=== PATIENT | male | born 1975 | race Caucasian/White ===

== ENCOUNTER 2025-02-24 01:47 | Inpatient (IN) | payer MEDICAID ==
[~2025-02-24] VITALS: Ht 177.8 cm; Wt 68.0 kg
[2025-02-24] MEDS: normal saline 1000ml 1,000 ML IV ONE ×2 (02:20→03:14)
--- NOTE | 2025-02-24 02:20 | Physician Documentation ---
History of Present Illness ~ Chief Complaint: ETOH Withdrawl Stated Complaint: ETOH/WITHDRAWAL Time Seen by : 02:09 Mode of Arrival: POV HPI Patient presents to the emergency room with chief complaint of alcohol withdrawal. He was seen at [facility] earlier today and received IV withdrawal medications per patient. This helped however he continued to have symptoms that has told that going down to [place] he will be a better place for him. Last drink yesterday. Endorses significant alcohol consumption over the past two years since he his . Complaining of tremors Tetanus within 5 years?: Yes Medication Reconciliation Allergies: Coded Allergies: No Known Allergies (Unverified , 02/24/25) Review of Systems ROS All review of systems negative except as per HPI Physical Exam Vital Signs: Temperature: 96.8, Source: Temporal, Heart Rate: 143, Respiratory Rate: 20, BP: 143/99, Pulse Oximetry: 98, Weight: 68.000 Physical Exam General: Patient is awake, alert, oriented x4, tremulous Head: Normocephalic and atraumatic. Eyes: Conjunctival normal. EOMI. PERRL. ENT: Mucous membranes moist. Neck: Supple, trachea is midline. Chest: Clear to auscultation bilaterally without rales, rhonchi, or wheezes. There is no accessory muscle use or retractions. Cardiac: Tachycardic and regular without murmurs, gallops, or rubs. Abd: Soft, nondistended, nontender, with normoactive bowel sounds. No guarding, rebound, or rigidity. Extremities: Normal strength. Normal range of motion. No deformities or edema. Back: No midline spinal or CVA tenderness. Skin: Warm and dry with no significant rash appreciated. Neuro: Cranial nerves II-XII grossly intact. No focal neuro deficits. Progress Results/Orders Results/Orders Orders - MISHA MCKEON MD Urinalysis (02/24/25 02:19) Drug Screen, Urine (02/24/25 02:19) Close Observation Level (02/24/25 02:19) Page Hospitalist (02/24/25 03:00) Fill Out Med Reconciliation (02/24/25 03:00) Completed Orders - MISHA MCKEON MD Normal Saline 1000ml (Sodium Chloride 10 (02/24/25 02:20) Cbc/Diff (02/24/25 02:19) Ethanol (02/24/25 02:19) TSH (02/24/25 02:19) Thiamine Inj. (Thiamine Inj.) (02/24/25 02:20) Electrocardiogram (02/24/25 02:20) Midazolam 5 Mg/Ml 2ml Inj (Versed 5 Mg/M (02/24/25 02:40) Normal Saline 1000ml (Sodium Chloride 10 (02/24/25 03:05) CMP (02/24/25 02:08) Medications Received in ER Medications (Trade) Dose Ordered Sig/Paty Route PRN Reason Start Time Stop Time Status Last Admin Dose Admin Sodium Chloride 1,000 ml @ 1,000 mls/hr ONCE ONCE IV 02/24/25 02:20 02/24/25 03:19 DC 02/24/25 02:20 1,000 MLS/HR (thiamine inj.) 100 mg ONCE ONCE IV 02/24/25 02:20 02/24/25 02:21 DC 02/24/25 02:24 100 MG (Versed 5 MG/ML 2ML inj) 5 mg ONCE ONCE IV 02/24/25 02:40 02/24/25 02:41 DC 02/24/25 02:56 5 MG Sodium Chloride 1,000 ml @ 1,000 mls/hr ONCE ONCE IV 02/24/25 03:05 02/24/25 04:04 DC 02/24/25 03:14 1,000 MLS/HR Sodium Chloride 1,000 ml @ 100 mls/hr Q10H IV 02/24/25 03:50 02/24/25 03:57 100 MLS/HR Vital Signs 02/24/25 02/24/25 02/24/25 01:53 02:09 03:02 Temp 96.8 Pulse 143 120 Resp 22 20 18 B/P (MAP) 143/99 144/98 (113) Pulse Ox 98 97 Laboratory Tests Test 02/24/25 02:08 White Blood Count 7.3 Red Blood Count 4.63 L Hemoglobin 15.2 Hematocrit 44.4 Mean Corpuscular Volume 95.9 Mean Corpuscular Hemoglobin 32.8 H Mean Corpuscular Hemoglobin Concent 34.2 Red Cell Distribution Width 14.8 H Platelet Count 165 Mean Platelet Volume 7.2 L Neutrophils (%) (Auto) 61.9 Lymphocytes (%) (Auto) 26.4 Monocytes (%) (Auto) 10.4 Eosinophils (%) (Auto) 0.8 Basophils (%) (Auto) 0.5 Neutrophils # (Auto) 4.5 Lymphocytes # (Auto) 1.9 Monocytes # (Auto) 0.8 Eosinophils # (Auto) 0.1 Basophils # (Auto) 0.0 CBC Comment Sodium Level 136 Potassium Level 3.7 Chloride Level 101 Carbon Dioxide Level 26.4 Anion Gap 9 Blood Urea Nitrogen 8 Creatinine 1.06 Estimated GFR/1.73 m2 74 BUN/Creatinine Ratio 7.5 L Glucose Level 211 H Calcium Level 8.8 Total Bilirubin 0.5 Aspartate Amino Transf (AST/SGOT) 90 H Alanine Aminotransferase (ALT/SGPT) 51 Alkaline Phosphatase 106 Total Protein 7.4 Albumin 3.7 Globulin 3.7 Albumin/Globulin Ratio 1.0 L Thyroid Stimulating Hormone (TSH) 2.04 Chemistry Comments Ethyl Alcohol Level < 10 EKG/XRAY/CT/US/VASC/MRI EKG : Additional Comment EKG interpreted by myself shows time of 0230, rate 115, sinus tachycardia, normal axis, no ST changes Medical Decision Making Findings Patient is experiencing significant withdrawal symptoms and he had not believe he is safe for discharge. IV fluids initiated along with thiamine and benzodiazepines. Departure Admitted to Inpatient Unit: yes, to hospitalist Impression: Primary Impression: Alcohol withdrawal syndrome Condition: Guarded Referrals: NO PRIMARY CARE PROVIDER (PCP) Signature Scribe Signature: No scribe Attestation: The note accurately reflects work and decisions made by me.Misha Mckeon MD 02/24/25 03:02 MISHA MCKEON MD Feb 24, 2025 02:20
[2025-02-24] MEDS: thiamine 100mg/ml 2ml inj. IV ONE (02:24)
[2025-02-24 02:29] LABS: BASOPHILS % (AUTO) 0.5 % (0-1); EOSINOPHILS # (AUTO) 0.1 X10'3 (0-0.9); EOSINOPHILS % (AUTO) 0.8 % (0-6); HEMATOCRIT 44.4 % (42.0-52.0); HEMOGLOBIN 15.2 g/dl (14.0-17.9); LYMPHOCYTES # (AUTO) 1.9 X10'3 (1.1-4.8); LYMPHOCYTES % (AUTO) 26.4 % (21-51); MEAN CORPUSCULAR HEMOGLOBIN 32.8 PG (27.0-31.0); MEAN CORPUSCULAR HGB CONC 34.2 g/dL (33.0-36.5); MEAN CORPUSCULAR VOLUME 95.9 FL (78-98); MEAN PLATELET VOLUME 7.2 FL (7.4-10.4); MONOCYTES # (AUTO) 0.8 X10'3 (0-0.9); MONOCYTES % (AUTO) 10.4 % (2-12); NEUTROPHILS # (AUTO) 4.5 X10'3 (1.8-7.7); NEUTROPHILS % (AUTO) 61.9 % (42-75); PLATELET COUNT 165 X10'3 (140-440); RED BLOOD COUNT 4.63 X10'6 (4.70-6.10); RED CELL DISTRIBUTION WIDTH 14.8 % (11.5-14.5); WHITE BLOOD COUNT 7.3 X10'3 (4.5-11.0)
--- NOTE | 2025-02-24 02:32 | ELECTROCARDIOGRAPH REPORT ---
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 Mode Ron Measurements Intervals [place] Rate: 115 P: 44 [place]: 144 QRS: 34 QRSD: 79 T: 33 QT: 315 QTc: 436 Interpretive Statements Sinus tachycardia Electronically Signed On 02-25-2025 18:24:[address] Mode Ron Please click the below link to view image of tracing.
[2025-02-24 02:47] LABS: ALBUMIN 3.7 G/DL (3.4-5.0); ANION GAP 9 (8-16); BLOOD UREA NITROGEN 8 MG/DL (7-18); BUN/CREATININE RATIO 7.5 (10.0-20.0); CALCIUM 8.8 MG/DL (8.5-10.1); CHLORIDE 101 MMOL/L (99-107); CREATININE 1.06 MG/DL (0.60-1.10); ETHANOL < 10 MG/DL (<10); GLUCOSE 211 MG/DL (70-104); POTASSIUM 3.7 MMOL/L (3.5-5.1); SODIUM 136 MMOL/L (135-145); THYROID STIMULATING HORMONE 2.04 ulU/ml (0.34-4.50); TOTAL CARBON DIOXIDE 26.4 MMOL/L (24-32); eCRCL 81 ML/MIN; eGFR 74 ML/MIN
[2025-02-24] MEDS: MIDAZolam 5mg/ml 2ml vial IV ONE (02:56)
[2025-02-24] MEDS ORDERED: magnesium sulf-water 2g/50mL 50 ML IV PRN (03:50)
[2025-02-24] MEDS ORDERED: magnesium Cl slow-release 64mg tablet PO PRN (03:50)
[2025-02-24] MEDS ORDERED: potassium Cl 40MEQ/1/2NS 520ml 520 ML IV PRN (03:50)
[2025-02-24] MEDS ORDERED: magnesium hydroxide 30ml (MOM) UD suspension PO PRN (03:50)
[2025-02-24] MEDS ORDERED: magnesium sulf-water 4G/100mL 100 ML IV PRN (03:50)
[2025-02-24] MEDS ORDERED: potassium Cl 20 mEq SR tablet PO PRN ×2 (03:50)
[2025-02-24 03:56] LABS: ALANINE AMINOTRANSFERASE 51 U/L (12-78); ALKALINE PHOSPHATASE 106 IU/L (46-116); ASPARTATE AMINO TRANSFERASE 90 U/L (10-37); BILIRUBIN,TOTAL 0.5 MG/DL (0.1-1.0); TOTAL PROTEIN 7.4 G/DL (6.4-8.2)
[2025-02-24] MEDS: normal saline 1000ml 1,000 ML IV SCH ×2 (03:57→04:35)
[2025-02-24] MEDS ORDERED: haloperidol 5mg tablet PO PRN (04:20)
[2025-02-24] MEDS ORDERED: LORazepam 2 mg/ml vial IV PRN (04:20)
[2025-02-24] MEDS ORDERED: haloperidol lactate 5mg/ml inj IM PRN ×2 (04:20)
[2025-02-24] MEDS ORDERED: dextrose 50%-water 50ml dispensing syringe IV PRN (04:20)
--- NOTE | 2025-02-24 04:28 | HISTORY AND PHYSICAL-Residence ---
History & Physical Providers to CC Resident Creating Document: JAQUELINE ADAMS RES ~ History of Present Illness Reason for Admit\Complaint: Alcohol withdrawal History of Present Illness 49 years old male presented to the ED with alcohol withdrawal symptoms. Patient start drinking heavily during last 18 months and had couple of months sober in between, however patient start drinking again about three months ago. He has been drinking on and off recently. He reported he during for 4-5 drinks daily including beer and hard liquor. He reported multiple nausea vomiting last week due to binge drinking. Last drinking was yesterday which was a whiskey. He reported severe tremor, and agitation, intermittent shortness of breath, denied hallucination Allergies: Coded Allergies: No Known Allergies (Unverified , 02/24/25) Past Medical History Past Medical History Borderline hypertension Past Surgical History Surgical History Comment Noncontributory Family History Family History: FH: colon cancer (Mother,) Past Social History Smoking: Non-Smoker Alcohol Use: Heavy Drug Use: None ROS ROS The history of present illness included a review of system, which yielded relevant positives and negatives Exam Vitals: Vital Signs Date Time Temp Pulse Resp B/P (MAP) Pulse Ox O2 Delivery O2 Flow Rate FiO2 02/24/25 04:19 118 15 120/76 (91) 98 02/24/25 01:53 96.8 General: General: Awake and Alert, mild agitation HEENT: Conjunctiva pink, Sclera clear, Mucus Membranes moist. Neck: Supple without masses and tenderness. Resp: Lungs clear to auscultation bilaterally. Heart: Regular Rate and rhythm, normal S1 and S2 without murmur, rub or gallop. Abdomen: Soft and non tender no organomegaly Extremities: Bilateral upper extremity tremor, No cyanosis,clubbing or edema. Skin: Warm and Dry. 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 Patient seen through remote audiovisual assessment through HIPAA compliant setup. All labs, flowsheets, and images reviewed Cumulative nonprocedural care time spent in directed patient care = 30 min Monica Rodrigez MD Date of Service: Feb 24, 2025 Billing Provider: MONICA RODRIGEZ MD Common Visit Codes: [id number] INP/OBS CARE (MOD) JAQUELINE ADAMS, RES Feb 24, 2025 04:28 MONICA RODRIGEZ MD Feb 24, 2025 05:57
[2025-02-24] MEDS: LORazepam 2 mg/ml vial IV PRN ×2 (04:53→06:04)
[2025-02-24 04:57] LABS: AMYLASE 62 U/L (25-115); LIPASE 115 U/L (16-77)
[2025-02-24 05:00] LABS: APTT 27 SECONDS (22-32)
[2025-02-24] MEDS: pantoprazole 40 MG vial IV SCH (05:06)
[2025-02-24 05:34] LABS: URINE AMPHETAMINE SCREEN NEGATIVE (Neg); URINE BARBITUATE SCREEN NEGATIVE (Neg); URINE BENZODIAZEPINES SCREEN POSITIVE (Neg); URINE CANNABINOID SCREEN POSITIVE (Neg); URINE COCAINE SCREEN NEGATIVE (Neg); URINE METHADONE SCREEN NEGATIVE (Neg); URINE OPIATE SCREEN NEGATIVE (Neg); URINE PHENCYCLIDINE SCREEN NEGATIVE (Neg)
[2025-02-24] MEDS: thiamine 100mg/ml 2ml inj. IV SCH ×2 (05:42→09:16)
[2025-02-24 05:45] LABS: BILIRUBIN,URINE NEGATIVE (Neg); CLARITY,URINE CLEAR (Clear); COLOR,URINE YELLOW (Yellow); GLUCOSE, URINE NEGATIVE (Neg); KETONES,URINE NEGATIVE (Neg); LEUKOCYTE ESTERASE ,URINE NEGATIVE (Neg); NITRITES, URINE NEGATIVE (Neg); OCCULT BLOOD,URINE NEGATIVE (Neg); PROTEIN,URINE NEGATIVE (Neg); UROBILINOGEN,URINE 0.2 E.U/dL (0.2-1.0)
[2025-02-24 05:52] LABS: UA COLLECTION TYPE VOIDED
[2025-02-24 05:54] VITALS: BP 126/83; PULSE 106; RESP 19; TEMP 98; O2SAT 98
[2025-02-24 06:56] LABS: MAGNESIUM 2.1 MG/DL (1.5-2.4); POTASSIUM 3.8 MMOL/L (3.5-5.1)
[2025-02-24 08:00] VITALS: RESP 18; O2SAT 96
[2025-02-24] MEDS: docusate sod 100mg capsule PO SCH (08:00)
[2025-02-24] MEDS: K and/or MAG REPLACEMENT MC SCH (08:00)
[2025-02-24] MEDS: folic acid 1mg/0.2ml inj IV SCH (09:15)
[2025-02-24] MEDS: heparin, porcine 5000 units/ml vial SQ SCH (09:16)
[2025-02-24] MEDS: multivitamins, therapeutics tablet PO SCH (09:17)
[2025-02-24 10:00] VITALS: BP 141/86; PULSE 90; RESP 18; TEMP 98.4; O2SAT 96
[2025-02-24 13:44] VITALS: RESP 18; O2SAT 96
[2025-02-24] MEDS: ondansetron/PF 4mg/2ml inj IV PRN (15:24)
[2025-02-24] MEDS: acetaminophen 325mg tablet PO PRN (15:26)
[2025-02-24] MEDS ORDERED: acetaminophen 325mg tablet PO PRN (16:40)
[2025-02-24] MEDS ORDERED: iohexol 300mg/ml 100ml inj. ONE (16:57)
--- NOTE | 2025-02-24 17:45 | RADIOLOGY REPORT ---
EXAM: CT Abdomen and Pelvis With Intravenous Contrast CLINICAL INDICATION: n/v/d, elevated lipase TECHNIQUE: Axial computed tomography images of the abdomen and pelvis with intravenous contrast. Th is CT exam was performed using one or more of the following dose reduction techniques: automated exp osure control, adjustment of the mA and/or kV according to patient size, and/or use of iterative alberto nstruction technique. CONTRAST: COMPARISON: No relevant prior studies available. FINDINGS: LUNG BASES: Unremarkable. No mass. No consolidation. ABDOMEN: LIVER: Hepatomegaly with fatty infiltration. GALLBLADDER AND BILE DUCTS: Unremarkable. No calcified stones. No ductal dilation. PANCREAS: Unremarkable. No ductal dilation. No CT evidence of acute pancreatitis. SPLEEN: Unremarkable. No splenomegaly. ADRENALS: Unremarkable. No mass. KIDNEYS AND URETERS: Unremarkable. No solid mass. No hydronephrosis. STOMACH AND BOWEL: Fecal retention in the colon consistent with constipation. Colonic diverticulos is without acute diverticulitis. No obstruction. PELVIS: APPENDIX: No findings to suggest acute appendicitis. BLADDER: Unremarkable. No mass. REPRODUCTIVE: Unremarkable as visualized. ABDOMEN and PELVIS: INTRAPERITONEAL SPACE: Unremarkable. No free air. No significant fluid collection. BONES/JOINTS: No acute fracture. No dislocation. SOFT TISSUES: Umbilical hernia containing fat. Inguinal hernias, bilaterally. VASCULATURE: Unremarkable. No abdominal aortic aneurysm. LYMPH NODES: Unremarkable. No enlarged lymph nodes. OTHER FINDINGS: Comparison None. . IMPRESSION: 1. No CT evidence of acute pancreatitis. 2. Hepatomegaly with fatty infiltration. 3. Fecal retention in the colon consistent with constipation. 4. Umbilical hernia containing fat. 5. Inguinal hernias, bilaterally. 6. Colonic diverticulosis without acute diverticulitis. HS:Y
[2025-02-24 18:00] VITALS: BP 140/93; PULSE 101; RESP 18; TEMP 97.6; O2SAT 96
[2025-02-24 22:00] VITALS: BP 103/67; PULSE 62; RESP 16; TEMP 98.2; O2SAT 96
[2025-02-25 06:00] VITALS: BP 130/77; PULSE 85; RESP 16; TEMP 98.4; O2SAT 98
[2025-02-25 06:14] LABS: BASOPHILS % (AUTO) 0.6 % (0-1); EOSINOPHILS # (AUTO) 0.2 X10'3 (0-0.9); EOSINOPHILS % (AUTO) 2.9 % (0-6); HEMATOCRIT 42.2 % (42.0-52.0); HEMOGLOBIN 14.5 g/dl (14.0-17.9); LYMPHOCYTES # (AUTO) 1.4 X10'3 (1.1-4.8); LYMPHOCYTES % (AUTO) 23.9 % (21-51); MEAN CORPUSCULAR HEMOGLOBIN 32.9 PG (27.0-31.0); MEAN CORPUSCULAR HGB CONC 34.3 g/dL (33.0-36.5); MEAN CORPUSCULAR VOLUME 95.9 FL (78-98); MEAN PLATELET VOLUME 7.8 FL (7.4-10.4); MONOCYTES # (AUTO) 0.5 X10'3 (0-0.9); MONOCYTES % (AUTO) 7.9 % (2-12); NEUTROPHILS # (AUTO) 3.8 X10'3 (1.8-7.7); NEUTROPHILS % (AUTO) 64.7 % (42-75); PLATELET COUNT 120 X10'3 (140-440); RED CELL DISTRIBUTION WIDTH 14.3 % (11.5-14.5); WHITE BLOOD COUNT 5.9 X10'3 (4.5-11.0)
[2025-02-25 06:21] LABS: PROTHROMBIN TIME 10.3 SECONDS (9.0-12.0)
[2025-02-25 06:38] LABS: ALANINE AMINOTRANSFERASE 44 U/L (12-78); ALBUMIN 3.3 G/DL (3.4-5.0); ALBUMIN/GLOBULIN RATIO 1.1 (1.1-1.5); ALKALINE PHOSPHATASE 79 IU/L (46-116); AMYLASE 39 U/L (25-115); ANION GAP 9 (8-16); ASPARTATE AMINO TRANSFERASE 59 U/L (10-37); BILIRUBIN,TOTAL 0.9 MG/DL (0.1-1.0); BLOOD UREA NITROGEN 4 MG/DL (7-18); BUN/CREATININE RATIO 4.5 (10.0-20.0); CALCIUM 8.6 MG/DL (8.5-10.1); CHLORIDE 105 MMOL/L (99-107); CREATININE 0.89 MG/DL (0.60-1.10); GLUCOSE 93 MG/DL (70-104); LIPASE 27 U/L (16-77); PHOSPHORUS 3.5 MG/DL (2.3-4.5); POTASSIUM 3.9 MMOL/L (3.5-5.1); SODIUM 142 MMOL/L (135-145); TOTAL CARBON DIOXIDE 27.7 MMOL/L (24-32); TOTAL PROTEIN 6.4 G/DL (6.4-8.2); eCRCL 97 ML/MIN; eGFR > 90 ML/MIN
[2025-02-25] MEDS ORDERED: CHLO25CA10 PO (07:54)
[2025-02-25 08:00] VITALS: RESP 20; O2SAT 93
--- NOTE | 2025-02-25 11:02 | DISCHARGE SUMMARY ---
Discharge Summary Providers to CC ~ Discharge Summary Admission Diagnosis: Alcohol withdrawal Hospital Course DATE OF ADMISSION: 02/24/25 DATE OF DISCHARGE: 02/25/25 Discharge Diagnosis\\Comment: Alcohol withdrawal Sinus tachycardia Operations\\Procedures: None Consultants: None Complications: None Condition on DC: Stable New Medications: Chlordiazepoxide Hcl (Librium) 25 Mg Capsule 25 MG PO DIRECTED for 5 Days, #22 CAP 0 Refills Take 2 tablets by mouth every 6 hours x 1 day, then take 2 tablets every 8 hours x 1 day, then take 2 tablets every 12 hours x 1 day, then take 2 tablets at bedtime x 2 days. Folic Acid* (Folic Acid*) 0.4 Mg Tablet 1 TAB PO DAILY for 90 Days, #90 TAB Sennosides/Docusate Sodium (Senna S Tablet) 8.6 Mg-50 Mg Tablet 2 TAB PO HS for 14 Days, #28 TAB 0 Refills Thiamine HCl (Vitamin B-1) 50 Mg Tablet 2 TAB PO DAILY for 90 Days, #180 TAB 0 Refills Discharge Summary: History of Present Illness From H&P:"Gautam Conner is a 49 years old male presented to the ED with alcohol withdrawal symptoms. Patient start drinking heavily during last 18 months and had couple of months sober in between, however patient start drinking again about three months ago. He has been drinking on and off recently. He reported he during for 4-5 drinks daily including beer and hard liquor. He reported multiple nausea vomiting last week due to binge drinking. Last drinking was yesterday which was a whiskey. He reported severe tremor, and agitation, intermittent shortness of breath, denied hallucination. 49 years old male presented to the ED due to alcohol withdrawal symptoms" Hospital Course Diagnostic findings were notable for EKG sinus tachycardia at a rate of 115 bpm and physical assessment of lethargy, agitation and tremors. Pertinent negative findings were lytes, CT abdomen/pelvis negative for acute findings, negative urinalysis, normal INR. CT revealed hepatomegaly with fatty infiltration and otherwise unremarkable. Although lipase was slightly elevated on admission, patient denied abdominal pain and CT was negative for pancreatitis. Patient was started on alcohol withdrawal protocol and was treated with thiamine, folic acid, and intravenous fluids. Patient did not experience further complications throughout the entire hospital stay and made a good recovery. Patient was seen and examined on the day of discharge. On day of discharge, vss and labs unremarkable. Alcohol withdrawal symptoms including agitation and tremors improved significantly and patient completed physical therapy session well. He has not experienced nausea, vomiting, or diarrhea during the entire hospital stay. Patient recovered earlier than expected, alert and oriented x3, ambulates independently in and out of the room and to the bathroom. Patient was evaluated by bilingual social worker and was offered resources and contact information. All labs, diagnostic workups, discharge plan discussed with patient in details during visit before discharge. All questions and concerns answered to the best of my professional knowledge. Patient is to be discharged to home to self with taper dose Librium and to follow-up with PCP within 2 weeks. Patient is instructed to strictly abstain from alcohol use. 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
[2025-02-25] MEDS: sennosides/docusate sodium tablet PO STA (11:03)
[2025-02-25] MEDS ORDERED: THIA50TA10 PO (11:03)
[2025-02-25] MEDS ORDERED: FOLI0.4T6 PO (11:03)
[2025-02-25] MEDS ORDERED: SENN-267 PO (11:10)
[2025-02-25] MEDS ORDERED: sennosides/docusate sodium tablet PO SCH (20:00)
[2025-02-26] MEDS ORDERED: LORazepam 1 MG tablet PO PRN (04:20)
[2025-02-26] MEDS ORDERED: LORazepam 2 mg/ml vial IV PRN (04:20)
[2025-02-27] MEDS ORDERED: thiamine 100mg tablet PO SCH (08:00)
== END 2025-02-25 14:25 | disposition home or self-care (01) | DRG 775 ==
LOC: ER 01:48 → ED HOLD 03:50 → ORTHO 4S 05:43
PROVIDERS: ADMIT Internal Medicine Critical Care Medicine; ATTEND Nurse Practitioner Family
PROC: BW211ZZ Computerized Tomography (CT Scan) of Abdomen and Pelvis using Low Osmolar Contrast (ICD-10-PCS; principal; 2025-02-24)
DX: F10.239 Alcohol dependence with withdrawal, unspecified (principal); K76.0 Fatty (change of) liver, not elsewhere classified; R00.0 Tachycardia, unspecified
CPT/HCPCS: 36415; 74177; 80053; 80305; 80320; 81003; 82150; 82948; 83690; 83735; 84100; 84132; 84443; 84484; 85025; 85610; 85730; 87081; 93005; 97116; 97161; 97530; 99285; G0378; J1644; J2060; J2250; J2405; J2470; J3411; J3490; J7030; Q9967

== ENCOUNTER 2025-03-13 12:05 | Emergency (ER) | payer MEDICAID ==
[~2025-03-13] VITALS: Ht 175.3 cm; Wt 84.1 kg
[~2025-03-13 12:05] MED LIST: CHLO25CA10 PO; FOLI0.4T6 PO; SENN-267 PO; THIA50TA10 PO
--- NOTE | 2025-03-13 12:24 | ELECTROCARDIOGRAPH REPORT ---
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
--- NOTE | 2025-03-13 13:10 | Physician Documentation ---
History of Present Illness ~ Chief Complaint: Palpitations Stated Complaint: PALPITATIONS Time Seen by MD: 12:33 OK to notify your PCP?: Yes Primary Medical Doctor: No PCP Source: patient Mode of Arrival: POV Exam Limitations: no limitations HPI 49-year-old male with chief complaint palpitations. He states he has been dealing with anxiety ever since he started going through a divorce. He was started on Prozac and states this made his palpitations worse so he got off of Prozac and then got started on Wellbutrin. He does not think that the We llbutrin is helping his anxiety but he states he does not think it has made it any worse like the Prozac did. He reports the other is in his doctor prescribed him Wellbutrin as because it can also be used for ADHD which he states he also has a diagnosis of. He denies depression. He denies hallucinations or delirium. He states he has had difficulty sleeping due to his anxiety. He feels his heart rate in his legs and arms and sometimes his legs and arms feel numb. No syncopal episodes. States he has been to the doctor weekly for his anxiety and for these symptoms over the past few weeks. Medication Reconciliation Allergies: Coded Allergies: No Known Allergies (Unverified , 03/13/25) Scheduled Chlordiazepoxide Hcl (Librium), 25 MG PO DIRECTED Folic Acid* (Folic Acid*), 1 TAB PO DAILY Sennosides/Docusate Sodium (Senna S Tablet), 2 TAB PO HS Thiamine HCl (Vitamin B-1), 2 TAB PO DAILY Past Medical History Past Medical History: Anxiety Patient History: FH: colon cancer (Mother,) Alcohol Use: Heavy Drug Use: none Review of Systems All Other Systems at this time: Reviewed and Negative Physical Exam Vital Signs: Temperature: 97.8, Source: Temporal, Heart Rate: 84, Respiratory Rate: 16, BP: 137/99, Pulse Oximetry: 99, Weight: 84.090 Oxygen Flow Rate: 0 Physical Exam GENERAL: Alert, no acute distress. HEENT: NCAT, EOMI, PERRL, normal oropharynx, moist oral mucosa. NECK: Supple, trachea midline. CARDIAC: Regular rate and rhythm, no murmurs, rubs, or gallops. Equal distal pulses. No lower extremity edema, cap refill less than 2 seconds. RESPIRATORY: Equal breath sounds, clear to auscultation bilaterally, no respiratory distress. GASTROINTESTINAL: Non distended, soft, nontender, No guarding or rebound. MUSCULOSKELETAL: Normal range of motion, nontender, no swelling. Normal gait. NEUROLOGICAL: Awake, alert, and oriented x 3. SKIN: Warm/dry, no pallor, no rash. PSYCH: Alert and appropriate. Affect congruent with mood. Speech is clear. Good eye contact. Procedures Procedures EKG SINUS RHYTHM NORMAL FL AND QRS INTERVALS, NO QT PROLONGATION, NO ST CHANGES Progress Results/Orders Results/Orders Vital Signs 03/13/25 12:09 Temp 97.8 Pulse 84 Resp 16 B/P (MAP) 137/99 Pulse Ox 99 O2 Flow Rate 0 Medical Decision Making Differential Dx:Considerations: Include anxiety/panic attack, Include digoxin toxicity, Include electrolyte disorder, Include heart failure, Include hyperthyroidism, Include hyperventilation, Include hypoxia, Include pacemaker malfunction, Include pulmonary embolus, Include renal failure, Include other Departure Time of Disposition: 13:09 Disposition: 01 HOME / SELF CARE / HOMELESS Impression: Primary Impression: Anxiety Additional Impression: Palpitations Condition: Stable Discharge Instructions: Palpitations, [id number] Additional Instructions: EKG was normal your symptoms given your history are consistent with anxiety if your symptoms change or any other concerning symptoms please return for reassessment otherwise f/u with your PCP Referrals: NO PRIMARY CARE PROVIDER (PCP) Education Educated: Patient Educated regarding: diagnosis, treatment, need for follow up Signature Scribe Signature: x Attestation: SENDY Kearns Mar 13, 2025 13:10
[2025-03-13 13:15] VITALS: BP 133/91; PULSE 79; RESP 16; TEMP 97.8; O2SAT 98
== END 2025-03-13 13:19 | disposition home or self-care (01) ==
LOC: ER 12:06
DX: F41.9 Anxiety disorder, unspecified (principal); R00.2 Palpitations; Z95.0 Presence of cardiac pacemaker; Z79.899 Other long term (current) drug therapy
CPT/HCPCS: 93005; 99283